=== PATIENT | male | born 1995 | race African-American/Black ===

== ENCOUNTER 2024-04-09 14:21 | Emergency (ER) | payer SELFPAY ==
[2024-04-09] MEDS ORDERED: Lidocaine 1% w/Epinephrine 1:100K 20 ML VIAL ONE (15:29)
[2024-04-09] MEDS ORDERED: Boostrix 0.5 ML (Tdap) VIAL (>/=7 yrs of age) ONE (15:30)
[2024-04-09] MEDS ORDERED: Bacitracin 1 PK ONE (16:34)
== END 2024-04-09 16:55 | disposition home or self-care (01) ==
LOC: MADERS 14:21
DX: S81.012A Laceration without foreign body, left knee, initial encounter (principal); F17.210 Nicotine dependence, cigarettes, uncomplicated; W29.3XXA Contact with powered garden and outdoor hand tools and machinery, initial encounter
CPT/HCPCS: 12002; 90471; 90715